=== PATIENT | female | born 1995 | race Caucasian/White ===

== ENCOUNTER 2017-12-12 18:51 | Emergency (ER) | payer MEDICAID, OTHER ==
[~2017-12-12] VITALS: Ht 160 cm; Wt 100.0 kg
[2017-12-12] MEDS ORDERED: TETANUS, DIPHTHERIA, PERTUSSIS VAC/PF 0.5ML (>7YR OLD) IM ONE (22:45)
[2017-12-12 23:00] VITALS: BP 132/65
== END 2017-12-12 23:02 | disposition home or self-care (01) ==
LOC: ER 20:52
DX: S60.511A Abrasion of right hand, initial encounter (principal); W55.03XA Scratched by cat, initial encounter; Y93.89 Activity, other specified; Y92.89 Other specified places as the place of occurrence of the external cause; Z23 Encounter for immunization
CPT/HCPCS: 90471; 90715; 99283

== ENCOUNTER 2024-12-21 05:31 | Emergency (ER) | payer BC, OTHER ==
[~2024-12-21] VITALS: Ht 157.5 cm; Wt 103.0 kg
[2024-12-21 05:54] VITALS: TEMP 36.7; O2SAT 98
[2024-12-21 06:26] VITALS: TEMP 98
[2024-12-21] MEDS: ACETAMINOPHEN 325MG TABLET PO ONE (06:26)
[2024-12-21] MEDS ORDERED: TOPUD PO (06:53)
[2024-12-21 07:03] VITALS: BP 110/80; PULSE 80; RESP 14; O2SAT 98
== END 2024-12-21 07:07 | disposition home or self-care (01) ==
LOC: ER 05:31
DX: M25.561 Pain in right knee (principal)
CPT/HCPCS: 29505; 73560; 99283